=== PATIENT | female | born 1975 | race Caucasian/White ===

== ENCOUNTER → 2019-10-27 16:25 | Outpatient (CLI) | payer OTHER, SELFPAY ==
--- NOTE | 2019-10-27 | MM_ITS ---
PROCEDURE: MM DIG SCREENING MAMM BI W/CAD CLINICAL INDICATION: There is a history of breast cancer patient's mother aunt and grandmother. COMPARISON: None, this is a baseline examination TECHNIQUE: Standard CC and MLO images were obtained. R2 CAD reviewed. FINDINGS: Prominent diffuse fibroglandular densities are seen throughout both breast and the findings of bilateral and symmetrical. There is a possible asymmetric density inner quadrant left breast at the 9 o'clock position. This likely is a summation shadow but since this is the baseline study recommend patient return for spot compression views in the MLO and CC projection and this proved to be a true lesion recommend ultrasound as well.. IMPRESSION: Diffusely dense parenchymal pattern with possible asymmetric density left breast BI-RAD Category: 0 Need Additional Imaging Evaluation FOLLOW-UP: IMM Immediate Follow-up Recommended (A letter has been sent to the patient regarding results of the study.) Dictated by: Dr. Kush Ruff MD 10/31/2019 16:[address] Kush Ruff MD in [place] 10/31/2019 16:58
== END ==
PROVIDERS: PCP Family Medicine; Visit Provider Nurse Practitioner Family
DX: Z12.31 Encounter for screening mammogram for malignant neoplasm of breast (principal)
CPT/HCPCS: 77067

== ENCOUNTER → 2019-11-02 12:54 | Outpatient (CLI) | payer OTHER, SELFPAY ==
--- NOTE | 2019-11-02 13:04 | MM_ITS ---
PROCEDURE: MM DIG MAMM DX UNILAT LT CAD CLINICAL INDICATION: Abnormal mamm Abnormal mammogram, left breast nodule the COMPARISON: MM DIG SCREENING MAMM BI W/CAD from 10/27/2019 US BREAST LT COMPLETE from 11/02/2019 TECHNIQUE: Problem solving views performed along with left breast ultrasound FINDINGS: There is dense fibroglandular tissue decreasing the sensitivity of mammography. Spot views demonstrates a 5 mm nodular opacity in the deep mid aspect of the left breast as seen on the MLO view corresponding to the abnormality noted on the screening exam. This is not well demonstrated on the CC view. The area of asymmetric density noted medially on the CC view appears to compress out. Left breast ultrasound: There is a 6 mm cyst at 9 o'clock which may correspond to the mammographic abnormality. No suspicious nodules are evident. No solid lesions. IMPRESSION: Left breast nodule may correspond to a benign-appearing cyst. Recommend short-term follow-up with mammogram and ultrasound of the left breast BI-RAD Category: 3 Probably Benign Finding Short Term Follow-up FOLLOW-UP: 6M 6Month Follow-up (A letter has been sent to the patient regarding results of the study.) Dictated by: Humza Wise MD 11/04/2019 12:07 Electronically signed by Humza Wise MD in [place] 11/04/2019 12:07
== END ==
PROVIDERS: PCP Family Medicine; Visit Provider Nurse Practitioner Obstetrics & Gynecology
DX: R92.2 Inconclusive mammogram (principal)
CPT/HCPCS: 76641; 77065

== ENCOUNTER → 2020-08-20 14:46 | Outpatient (CLI) | payer OTHER, SELFPAY ==
--- NOTE | 2020-08-20 14:55 | MM_ITS ---
PROCEDURE: MM DIG MAMM DX UNILAT LT CAD Digital Breast Tomosynthesis Included CLINICAL INDICATION: ABN MAMM Density inner quadrant left breast with cystic lesion on ultrasound at this location COMPARISON: MG MM DIG SCREENING MAMM BI W/CAD from 10/27/2019 MG MM DIG MAMM DX UNILAT LT CAD from 11/02/2019 US US BREAST LT COMPLETE from 08/20/2020 TECHNIQUE: Standard CC and MLO images and 3D Tomosynthesis was obtained. R2 CAD reviewed. FINDINGS: Diffuse somewhat heterogenic fibroglandular densities are seen in the breast. The small well-defined nodular lesion is again seen at approximately 9 o'clock position. Is stable unchanged in size and overall appearance from the previous exam. Ultrasound performed the same date shows several cystic lesions within the breast 1 of which is at the 9 o'clock position measuring approximately 8 mm in size. There are no suspicious solid lesions seen on the ultrasound exam. IMPRESSION: Stable benign-appearing asymmetric lesion on six-month follow-up mammogram and cystic lesion on six-month follow-up ultrasound and recommend the patient to continue with yearly screening mammography. BI-RAD Category: 2 Benign Finding(s) FOLLOW-UP: 6M 6Month Follow-up to return to normal yearly screening schedule (A letter has been sent to the patient regarding results of the study.) Dictated by: Dr. Kush Ruff MD 08/28/2020 15:43 Dr. Kush Ruff MD in [place] 08/28/2020 15:43
--- NOTE | 2020-08-20 15:15 | US_ITS ---
PROCEDURE: US BREAST LT COMPLETE CLINICAL INDICATION: 6 MTH F/U LT BREAST NODULE COMPARISON: US US BREAST LT COMPLETE from 11/02/2019 FINDINGS: There are benign-appearing cystic lesions at the 1 and 2 o'clock positions. In addition there is another oval hypoechoic cystic lesion with internal septations 2 o'clock position mid breast measuring 0.8 by 0.9 x 0.4 cm. This likely is a complex cyst. There are small hypoechoic cystic-appearing lesions at the 4 o'clock position near the nipple. There is a defined hypoechoic cystic-appearing oval lesion 6-7 o'clock near the nipple measuring 0.8 by 0.8 x 0.4 cm. This most likely corresponds to the nodular asymmetric density on recent mammogram. There are no suspicious solid lesions seen on the ultrasound exam. IMPRESSION: Multiple cystic benign-appearing lesions the benign-appearing cystic lesion 6 7 o'clock position near the nipple most likely corresponds to the nodular density on the previous mammogram and a six-month follow-up mammogram performed this date. Recommend the patient continue with yearly screening mammography Dictated by: Dr. Kush Ruff MD 08/28/2020 15:48 Dr. Kush Ruff MD in [place] 08/28/2020 15:48
== END ==
PROVIDERS: PCP Family Medicine; Visit Provider Family Medicine
DX: R92.8 Other abnormal and inconclusive findings on diagnostic imaging of breast (principal)
CPT/HCPCS: 76641; 77061; 77065; G0279

== ENCOUNTER 2021-07-15 14:40 | Emergency (ER) | payer SELFPAY ==
[2021-07-15 15:54] VITALS: BP 105/63; PULSE 53; RESP 14; TEMP 37; O2SAT 99; BMI 20.7
--- NOTE | 2021-07-15 16:04 | HMH.EDUTC ---
[facility] [place] Disposition Clinical Impression: Poison kimberly Contact dermatitis Qualifiers: Contact dermatitis type: allergic Contact dermatitis trigger: unspecified trigger Qualified Code(s): L23.9 - Allergic contact dermatitis, unspecified cause Disposition: Home, Self-Care Condition on Discharge: Good Instructions: DI for Poison Kimberly Allergy Additional Instructions: Avoid contact with the offending substance (poison kimberly). Don't start the oral steroids until tomorrow, since you had the shot here today. Don't put the topical steroids (triamcinolone) on your face or your groin. Follow up with your regular doctor. GO TO THE ER FOR ANY WORSENING SYMPTOMS OR CONCERNS Prescriptions: diphenhydrAMINE HCL [Diphenhydramine HCl] 25 mg PO Q6HP PRN #30 cap PRN Reason: Itching Transmission Status: Received by [facility] predniSONE [Prednisone 10mg Tab Dose-Pack] 1 pack PO DIRECTED #1 pack Transmission Status: Received by [facility] Triamcinolone Acetonide 1 applicatio TP TIDP PRN 7 Days #1 tube PRN Reason: Itching Transmission Status: Received by [facility] Referrals: Larry Spicer MD [Primary Care Provider] - Time of Disposition: 16:10 Medical Decision Making - Medical Records Medical records reviewed: No: I reviewed the patient's medical records. - Alex Inquiry Pt receiving controlled substance: No Vital Signs: 07/15/21 15:54 07/15/21 16:31 Temperature 98.6 F 98.4 F Temperature Source Oral Pulse Rate 59 L Pulse Rate [Left] 53 L Respiratory Rate 14 16 Blood Pressure 109/62 L Blood Pressure [Right Arm] 105/63 L Blood Pressure Mean [Right Arm] 77 02 Sat by Pulse Oximetry 99 Orders (Tests/Meds): ED MEDICATIONS Discontinued Medications Generic Name Dose Route Start Last Admin Trade Name Freq PRN Reason Stop Dose Admin Methylprednisolone Sodium Succinate 125 mg 07/15/21 16:06 07/15/21 16:15 Methylprednisolone Sod Succ 125mg Vial IM 07/15/21 16:07 125 mg ONCE ONE Administration [facility] [place] HPI - General Stated complaint: poison kimberly Time Seen by Provider: 07/15/21 16:04 Mode of Arrival: Ambulatory Source of Information: Patient, Parent(s) Limitations: No Limitations Description of Symptoms (Recalled from Triage Doc. by RN): pt presents with poison kimberly on both hands, L elbow, L knee, and face. this has been ongoing since 07/10 HEENT Symptoms (Recalled from RN notes): No Resp Symptoms (Recalled from RN notes): No Skin Symptoms (Recalled from RN notes): Yes (poison kimberly rash) MS Symptoms (Recalled from RN notes): No Functional Status (Recalled from RN notes): na - History of Present Illness Provider Complaint: She has poison kimberly for the past 4 days. She has a history of being very sensitive to poison kimberly. She had to weed eat and work in some weeks last weekend, then her symptoms began. - Related Data Previous Rx's Medication Instructions Recorded Triamcinolone Acetonide 1 applicatio TP TIDP PRN 7 Days #1 07/15/21 tube diphenhydrAMINE HCL 25 mg PO Q6HP PRN #30 cap 07/15/21 [Diphenhydramine HCl] predniSONE [Prednisone 10mg Tab 1 pack PO DIRECTED #1 pack 07/15/21 Dose-Pack] Allergies Allergy/AdvReac Type Severity Reaction Status Date / Time INGREDIENT: NO KNOWN - NO Allergy Unknown Uncoded 11/09/17 14:59 KNOWN DRUG ALLERGY - Worker's Comp Is this a Worker's Comp case?: No [facility] History - Hepatitis A Screen Drug use history?: No High risk sexual behaviors?: No History of sexually transmitted infection?: No Currently employed?: No Childcare worker?: No Do you have indoor plumbing?: Yes Do you have electricity?: Yes Attestation statement:: This patient has been screened for Hepatitis A risk factors. I have reviewed the patient's past medical history: Yes ROS Obtained: Yes All systems reviewed & no additional complaints - Constitutional Constitutional: Reports system reviewed
[2021-07-15 16:31] VITALS: BP 109/62; PULSE 59; RESP 16; TEMP 36.9
== END 2021-07-15 16:36 | disposition home or self-care (01) ==
PROVIDERS: Emergency Provider Nurse Practitioner Family; PCP Family Medicine
DX: L23.7 Allergic contact dermatitis due to plants, except food (principal)
CPT/HCPCS: 99202; G0463

== ENCOUNTER → 2021-12-03 16:44 | Outpatient (CLI) | payer OTHER, SELFPAY | PROVIDERS: Visit Provider Nurse Practitioner | DX: U07.1 COVID-19 (principal) | CPT/HCPCS: C9803; U0003; U0005 ==

== ENCOUNTER 2022-06-14 09:47 | Emergency (ER) | payer BC, SELFPAY ==
[2022-06-14 09:56] VITALS: BP 138/88; PULSE 66; RESP 18; O2SAT 100; BMI 20.7
[2022-06-14 10:12] LABS: Apearance,Urine Clear (Clear); Bilirubin,Urine Negative (Negative); Blood, Urine Trace (Negative); Color,Urine Dark Yellow (Yellow); Glucose,Urine (UA) Negative (Negative); Ketones,Urine Negative (Negative); Protein,Urine Negative (Negative)
[2022-06-14 10:13] LABS: UTC Leukocyte Esterase,Urine 2+ (Negative); UTC Nitrate,Urine Negative (Negative); Urobilinogen,Urine 0.2 EU/dl (0.2)
[2022-06-14 10:20] VITALS: BP 138/88; PULSE 66; RESP 18; TEMP 37; O2SAT 100; BMI 20.8
--- NOTE | 2022-06-14 10:27 | HMH.EDUTC ---
[facility] [place] Disposition Clinical Impression: UTI (urinary tract infection) Qualifiers: Urinary tract infection type: site unspecified Hematuria presence: with hematuria Qualified Code(s): N39.0 - Urinary tract infection, site not specified Disposition: Home, Self-Care Condition on Discharge: Good Instructions: Urinary Tract Infection, DI for Urinary Tract Infection (UTI), Phenazopyridine Additional Instructions: *Increase fluids. Water not Soda or Tea *Start antibiotic immediately and be sure to take as ordered for the FULL length of time although you should start to see improvement over the next 48 hours *Pyridium as needed Remember this medication will turn your urine [place]. This is normal but it will stain what ever it gets on *You should not use Pyridium for more than 48 hours. If so , follow up with your primary physician to review urine culture and ensure that antibiotic is adequate for infection *Be SURE to follow up anytime for new or worsening symptoms with your family doctor. AND in 48 hours for urine culture results with your family doctor, if you do not have a doctor then you may call back to the [facility] for urine culture results and further treatment. We do recommend that you choose and establish care with a Primary Care Physician. AND follow up with them in 10-14 days to repeat UA to ensure infection is resolved and blood no longer present *Be sure to let your PCP know that we sent urine cultures from the [facility] so they can follow up to ensure that you area the on the correct antibiotic Call your doctor office and make appointment for 48 hours (2 days from today) to follow up and get the results of your urine culture and further treatment Follow up immediately if any worsening of symptoms Prescriptions: Cefdinir [Omnicef 300mg Capsule] 300 mg PO BID 7 Days #14 cap Transmission Status: Sent to [facility] Phenazopyridine HCl [Pyridium 200mg Tablet] 200 pow PO TID #6 tab Transmission Status: Sent to [facility] Referrals: Larry Spicer MD [Primary Care Provider] - As needed Time of Disposition: 10:36 Medical Decision Making - Alex Inquiry Pt receiving controlled substance: No Alex was queried for this patient: No Vital Signs: 06/14/22 09:56 06/14/22 10:20 06/14/22 10:40 Temperature 98.6 F 98.6 F Temperature Source Oral Pulse Rate 66 Pulse Rate [Left Radial] 66 66 Respiratory Rate 18 18 18 Blood Pressure 138/88 Blood Pressure [Right Arm] 138/88 138/88 Blood Pressure Mean [Right Arm] 104 104 Blood Pressure Source [Right Arm] Automatic Cuff Blood Pressure Position [Right Arm] Sitting 02 Sat by Pulse Oximetry 100 100 Oxygen Delivery Method Room Air Room Air - Lab Data Lab results reviewed: Yes: I reviewed the patient's lab results. Lab Results 06/14/22 10:10: Urine Color Dark yellow, Urine Appearance Clear, Urine pH 7.0, Ur Specific [place] 1.010, Urine Protein Negative, Urine Glucose (UA) Negative, Urine Ketones Negative, Urine Blood Trace, Urine Nitrate Negative, Urine Bilirubin Negative, Urine Urobilinogen 0.2, Ur Leukocyte Esterase 2+ A Orders (Tests/Meds): ORDERS Category Date Time Status Urine Culture Stat Micro 06/14/22 10:10 Ordered [facility] [place] [place] HPI - General Stated complaint: possible bladder inf, frequent urination Time Seen by Provider: 06/14/22 10:27 Mode of Arrival: Ambulatory Source of Information: Patient Limitations: No Limitations Description of Symptoms (Recalled from Triage Doc. by RN): pt to ed c/o burning with urination and urinary urgency. pt denies abd pain. - History of Present Illness Provider Complaint: Patient states that she started a couple weeks ago feeling like she had a UTI so she started taking OTC AZO and drinking cranberry juice and it felt better States that now it has returned States that she has been having burning with urination and pressure and feeling like she has to go so today when she was still having issues she cam
[2022-06-14 10:40] VITALS: BP 138/88; PULSE 66; RESP 18; TEMP 37; O2SAT 100
== END 2022-06-14 10:45 | disposition home or self-care (01) ==
LOC: ER 09:56 → UTC 09:56
PROVIDERS: Emergency Provider Nurse Practitioner; PCP Family Medicine
DX: N39.0 Urinary tract infection, site not specified (principal)
CPT/HCPCS: 81003; 87086; 99212; G0463

== ENCOUNTER 2022-10-08 12:53 | Emergency (ER) | payer BC, SELFPAY ==
[2022-10-08 14:00] VITALS: BP 112/73; PULSE 70; RESP 18; TEMP 36.8; O2SAT 98; BMI 19.3
[2022-10-08 14:12] LABS: Apearance,Urine Cloudy (Clear); Bilirubin,Urine Negative (Negative); Blood, Urine Trace (Negative); Color,Urine Red (Yellow); Glucose,Urine (UA) 100 (Negative); Ketones,Urine Negative (Negative); Protein,Urine 1+ (Negative); Specific Gravity, Urine 1.015 (1.005-1.030); UTC Leukocyte Esterase,Urine Negative (Negative); UTC Nitrate,Urine Positive (Negative); Urobilinogen,Urine 1 EU/dl (0.2)
--- NOTE | 2022-10-08 14:31 | EXP.UTC ---
Discharge Plan Disposition Patient Disposition: Home, Self-Care Condition: Good Prescriptions Prescriptions: New nitrofurantoin monohyd/m-cryst [Macrobid] 100 mg capsule 100 mg PO Q12H 7 Days Qty: 14 0RF Rx Instructions: must administer with a meal/food phenazopyridine [Pyridium] 200 mg tablet 200 mg PO Q8H 2 Days Qty: 6 0RF Referrals Follow up/Referrals: Larry Spicer MD [Primary Care Provider] - See instructions Activity Restrictions/Add. Instructions Additional Instructions/Restrictions: *Increase fluids. Water not Soda or Tea *Start antibiotic immediately and be sure to take as ordered for the FULL length of time although you should start to see improvement over the next 48 hours *Pyridium as needed Remember this medication will turn your urine . This is normal but it will stain what ever it gets on *You should not use Pyridium for more than 48 hours. If so , follow up with your primary physician to review urine culture and ensure that antibiotic is adequate for infection *Be SURE to follow up anytime for new or worsening symptoms with your family doctor. AND in 48 hours for urine culture results with your family doctor, if you do not have a doctor then you may call back to the [facility] for urine culture results and further treatment. We do recommend that you choose and establish care with a Primary Care Physician. ?AND follow up with them ?in 10-14 days to repeat UA to ensure infection is resolved and blood no longer present *Be sure to let your PCP know that we sent urine cultures from the [facility] so they can follow up to ensure that you area the on the correct antibiotic Call your doctor office and make appointment for 48 hours (2 days from today) ?to follow up and get the results of your urine culture and further treatment Clinical Impressions Clinical Impression: UTI (urinary tract infection) Qualifiers: Urinary tract infection type: site unspecified Hematuria presence: with hematuria Qualified Code(s): N39.0 - Urinary tract infection, site not specified Instructions Patient Instructions: DI for Urinary Tract Infection (UTI) Discharge ED Provider: Beatriz French [facility] [place] HPI General Stated complaint: Possible UTI Mode of Arrival: Ambulatory Source of Information: Patient Limitations: No Limitations Time Seen by Provider: 10/08/22 14:31 Description of Symptoms (Recalled from Triage Doc. by RN): PATIENT C/O BURNING WITH URINATION X 2 DAYS HEENT Symptoms (Recalled from RN notes): No Resp Symptoms (Recalled from RN notes): No Skin Symptoms (Recalled from RN notes): No MS Symptoms (Recalled from RN notes): No Functional Status (Recalled from RN notes): WNL History of Present Illness Provider Complaint: Patient states that she has a history of UTI States that for the last couple of days she has been having burning with urination that hasnt got better and feels like it did when she had UTI in the past Related Data Previous Rx's Medication Instructions Recorded nitrofurantoin 100 mg PO Q12H 7 days #14 caps 10/08/22 monohydrate/macrocrystals 100 mg capsule (Macrobid) phenazopyridine 200 mg tablet 200 mg PO Q8H pain 2 days #6 tabs 10/08/22 (Pyridium) Allergies Allergy/AdvReac Type Severity Reaction Status Date / Time No Known Allergies Allergy Verified 07/16/22 15:59 Worker's Comp Is this a Worker's Comp case?: No PFSH PFSH Medical History (Updated 10/08/22 @ 14:32 by Beatriz French APRN) Kidney stone Thyroid disease Urinary tract infection Surgical History (Updated 10/08/22 @ 14:14 by Saritha Bland RN) History of dental surgery History of tubal ligation Social History (Updated 10/08/22 @ 14:14 by Saritha Bland, RN) Smoking Status: Current every day smoker alcohol intake: current substance use type: marijuana current occupational status: employed Travel in the last 8 weeks: None ROS Obtained: Yes All systems reviewed & no additional complaints excep
[2022-10-08 14:38] VITALS: BP 112/73; PULSE 70; RESP 18; TEMP 36.8; O2SAT 98
== END 2022-10-08 14:40 | disposition home or self-care (01) ==
PROVIDERS: Emergency Provider Nurse Practitioner; PCP Family Medicine
DX: N39.0 Urinary tract infection, site not specified (principal)
CPT/HCPCS: 81003; 87086; 99212; G0463

== ENCOUNTER 2025-05-03 15:22 | Outpatient (CLI) | payer BC, SELFPAY ==
--- NOTE | 2025-05-03 15:25 | US_ITS ---
PROCEDURE INFORMATION: Exam: US Left Breast, Complete Exam date and time: 05/03/2025 3:20 PM Age: 49 years old Clinical indication: Concern for palpable lump. TECHNIQUE: Imaging protocol: Complete ultrasound of all four quadrants of the left breast and the retroareolar regions, including ultrasound of the axilla when performed. COMPARISON: US BREAST LT COMPLETE 08/20/2020 3:22 PM FINDINGS: ULTRASOUND: Breast ultrasound findings: Left sonography, all 4 quadrants, retroareolar and axilla demonstrate at the palpable concern at 3 o'clock 4 cm from the nipple, an anechoic 0.4 cm cyst, though calipers were placed on a larger area, more likely deeper tissue than a mass, measuring 0.7 x 0.6 x 0.7 cm. On prior sonography 08/20/2020, cystic changes were noted at 4 o'clock. At 6 o'clock 2 cm from the nipple, anechoic avascular cyst measuring 0.6 x 0.7 x 0.3 cm. At 6 o'clock retroareolar, there is a mass with cystic components, septations, and more nodular component which shows increased Doppler flow, measuring 0.6 x 0.5 x 0.6 cm. Sonographically unremarkable axillary lymph node. IMPRESSION: See comments Recommend ultrasound guided biopsy for indeterminate complex cyst left 6 o'clock retroareolar. Regarding palpable concern on the left at 3 o'clock, correlating sonography shows more likely cystic change with related breast tissue than mass, recommend that patient be recalled for bilateral diagnostic mammogram (last available bilateral mammogram indicated as 11/04/2019). If mammogram unrevealing regarding the palpable concern, suggest 3 month follow-up left sonography unless otherwise clinically indicated. Further evaluation of a palpable abnormality should be based on clinical grounds regardless of radiographic findings or lack thereof. ASSESSMENT: BI-RADS Category 4: Suspicious.
== END 2025-05-03 23:59 | disposition home or self-care (01) ==
PROVIDERS: PCP Family Medicine; Visit Provider Family Medicine
DX: N60.02 Solitary cyst of left breast (principal)
CPT/HCPCS: 76641

== ENCOUNTER 2025-05-08 14:44 | Outpatient (CLI) | payer BC, SELFPAY ==
--- NOTE | 2025-05-08 14:47 | MM_ITS ---
PROCEDURE INFORMATION: Exam: MG Left Diagnostic Breast Tomosynthesis MG Bilateral Diagnostic Mammography Exam date and time: 05/08/2025 2:57 PM Age: 49 years old Clinical indication: Left breast palpable lump TECHNIQUE: Imaging protocol: Left Diagnostic tomosynthesis and 2D mammography including computer-aided detection (CAD) when performed. Unilateral or bilateral exam. Diagnostic mammography of the bilateral breasts including computer-aided detection (CAD) when performed. Bilateral exam. COMPARISON: 1. MG MM DIG MAMM DX UNILAT LT CAD 08/20/2020 2:54 PM 2. MG MM DIG MAMM DX UNILAT LT CAD 11/02/2019 1:11 PM FINDINGS: MAMMOGRAPHY: Breast composition: The breasts are heterogeneously dense, which may obscure small masses. Breast mammogram findings: There is no stellate mass, architectural distortion or suspicious microcalcifications in either breast to suggest malignancy. No skin thickening or axillary adenopathy. A skin marker was placed over the area of palpable concern in the left upper outer quadrant. No suspicious findings on routine or spot compression views. Sonography performed 05/03/2025 suggested short-term sonographic follow-up over the area of palpable concern in the presence of a normal mammogram. IMPRESSION: No mammographic evidence of malignancy. However, sonogram report dated 05/03/2025 recommended ultrasound-guided core biopsy of a complex cystic mass in the left 6 o'clock retro areolar region. Three-month follow-up left 3 o'clock axis ultrasound was also recommended to assess stability of a focal area of palpable concern ASSESSMENT: BI-RADS Category 4: Suspicious.
--- OUTSIDE RECORDS SUMMARY | 2025-05-08 14:47 | XMS_ITS | Clinical Summary ---
Author Organization [employer] Address [address] [place] [id number] Care Team Providers Care Business Consultant Name Role Phone Unavailable Primary Care Provider Unavailabl e Social History Tobacco Use Types Packs/Day Years Used Date Smoking Tobacco: Never Assessed Comments Unknown Sex and Gender Information Value Date Recorded Sex Assigned at Not on file Legal Sex Female 7:11 PM CDT Gender Identity Not on file Sexual Orientation Not on file Plan of Treatment Not on file
--- OUTSIDE RECORDS SUMMARY | 2025-05-08 14:47 | XMS_ITS | Referral Summary ---
Author Organization [employer] Address [address] [place] [id number] Care Team Providers Care General Internal Medicine Physician Name Role Phone Unavailable Primary Care Provider [...]
--- OUTSIDE RECORDS SUMMARY | 2025-05-08 14:47 | XMS_ITS | Encounter Summary ---
Author Organization [email or web address] Address [address] [place] [id number] Care Team Providers Care Dental Insurance Coordinator Name Role Phone Unavailable Primary Care Provider Unavailabl e Encounter Details Date Type Department Care Team (Late st Contact Info) Description 12/05/2020 Transcribed Document [facility] [place] Family Medicine [address] [place] [address] ProviderElian MD [address] [place] [address] Social History Tobacco Use Types Packs/Day Years Used Date Smoking Tobacco: Never Assessed Comments Unknown Sex and Gender Information Value Date Recorded Sex Assigned at Not on file Legal Sex Female 7:11 PM CDT Gender Identity Not on file Sexual Orientation Not on file documented as of this encounter Miscellaneous Notes * Cerner Conversion Note - Historical ProviderMD - 12/05/2020 8:51 AM [facility] Height and Weight, Routine Entered On: 12/05/2020 8:52 EST Performed On: 12/05/2020 8:51 EST by SHAUN HOLLINGSWORTH RN Height and Weight, Routine Routine Weight Source : Standing scale Routine Weight Entry Format : [place] Routine Weight, Pounds : 123 lb Routine Weight Calculation : 55.91 kg Height Source : Measured Height Entry Format : [place] Height, Feet : 5 ft Clinical Height : 152.4 cm Body Surface Area (BSA), Routine : 1.52 m2 Body Mass Index (BMI), Routine : 24.07 kg/m2 SHAUN HOLLINGSWORTH RN - 12/05/2020 8:51 EST documented in this encounter Plan of Treatment Not on file documented as of this encounter Visit Diagnoses Not on filedocumented in this encounter
--- OUTSIDE RECORDS SUMMARY | 2025-05-08 14:47 | XMS_ITS | Encounter Summary ---
Author Organization [employer] Address [address] [place] [id number] Care Team Providers Care Front End Specialist Name Role Phone Unavailable Primary Care Provider Unavailabl e Encounter Details Date Type Department Care Team (Late st Contact Info) Description 12/05/2020 Transcribed Document [facility] [place] [address] [place] [address] ProviderElian MD [address] [place] [address] Social History Tobacco Use Types [...] - Historical ProviderMD - 12/05/2020 8:51 AM [employer] Vital Measurements Entered On: 12/05/2020 8:52 EST Performed On: 12/05/2020 8:51 EST by SHAUN HOLLINGSWORTH RN Vital Measurements Temperature, Fahrenheit : 98 Deg F Clinical Temperature, C : 36.7 Deg C Peripheral Pulse Rate : 50 bpm (LOW) Systolic Blood Pressure : 109 mmHg Diastolic Blood Pressure : 62 mmHg Oxygen Saturation : 100 % SHAUN HOLLINGSWORTH RN - 12/05/2020 8:51 EST Electronically signed by Reanna Fields Conversion Pay Station Department Manager Cermike at 03/09/2023 1:32 PM CDT documented in this encounter Plan of Treatment Not on file documented as of this encounter Visit Diagnoses Not on filedocumented in this encounter
--- OUTSIDE RECORDS SUMMARY | 2025-05-08 14:47 | XMS_ITS | Encounter Summary ---
Author Organization [email or web address] Address [address] [place] [id number] Care Team Providers Care Control Area Operator Name Role Phone Unavailable Primary Care Provider Unavailabl e Encounter Details Date Type Department Care Team (Late st Contact Info) Description 12/06/2020 Transcribed Document [facility] [place] [facility] [place] [address] ProviderElian MD [address] [place] [address] Social History Tobacco Use Types Packs/Day Years Used Date Smoking Tobacco: Never Assessed Comments Unknown Sex and Gender Information Value Date Recorded Sex Assigned at Not on file Legal Sex Female 7:11 PM CDT Gender Identity Not on file Sexual Orientation Not on file documented as of this encounter Miscellaneous Notes * Cerner Conversion Note - Elian ProviderMD - 12/06/2020 5:28 PM NUMERICAL CONTROL DRILL PRESS OPERATOR DATE OF SERVICE: STRESS TEST INTERPRETATION The patient underwent the treadmill stress test and reached 10.4 METS. She reached 155 beats per minute, which is 87% of the age predicted heart rate. The baseline blood pressure was 107/57. The maximum blood pressure 146/56 mmHg. The patient returned to stage IV for a duration of 9 minutes and 13 seconds. The reason for stopping the stress test was shortness of breath and leg fatigue. Overall, there was no complications or chest pain or arrhythmia. Overall, the stress test is satisfactory. /[id number] Daniel Neville MD SE/AQ / SE / MODL /[id number] Electronically signed by Diamond, [facility] Conversion Float Phlebotomist Cerner at 03/09/2023 1:24 PM CDT documented in this encounter Plan of Treatment Not on file documented as of this encounter Visit Diagnoses Not on filedocumented in this encounter
== END 2025-05-08 23:59 | disposition home or self-care (01) ==
LOC: RAD 14:45
PROVIDERS: PCP Family Medicine; Visit Provider Family Medicine
DX: Z12.31 Encounter for screening mammogram for malignant neoplasm of breast (principal); N63.25 Unspecified lump in the left breast, overlapping quadrants; R92.333 Mammographic heterogeneous density, bilateral breasts
CPT/HCPCS: 77062; 77066; G0279

== ENCOUNTER 2025-05-29 09:26 | Outpatient (CLI) | payer BC, SELFPAY ==
--- OUTSIDE RECORDS SUMMARY | 2025-05-29 09:29 | XMS_ITS | Encounter Summary ---
Author Organization [employer] ([place], [place], [place], [place]) Address [address] [place] [address] Care Team Providers Care Track Vehicle Repairer Name Role Phone Unavailable Primary Care Provider Unavailabl e Encounter Details Date Type Department Care Team (Late st Contact Info) Description 12/06/2020 Transcribed Document [facility] [place] Family Medicine [address] [place] [address] ProviderElian MD [address] [place] [address] Social History Tobacco Use Types [...] - Elian ProviderMD - 12/06/2020 5:28 PM GLOBAL ACCOUNT MANAGER DATE OF SERVICE: STRESS TEST INTERPRETATION The [...] arrhythmia. Overall, the stress test is satisfactory. /[id number] Daniel Neville MD SE/AQ / SE / MODL /[id number] documented in this encounter Plan of Treatment Not on file documented as of this encounter Visit Diagnoses Not on filedocumented in this encounter
--- OUTSIDE RECORDS SUMMARY | 2025-05-29 09:29 | XMS_ITS | Encounter Summary ---
Author Organization [employer] ([place], [place], [place], [place]) Address [address] [place] [address] Care Team Providers Care Price Economist Name Role Phone Unavailable Primary Care Provider Unavailabl e Encounter Details Date Type Department Care Team (Late st Contact Info) Description 12/05/[address] [facility] [place] Family Medicine [address] [place] [address] ProviderElian MD [address] [place] [address] Social History Tobacco Use Types [...] - Historical ProviderMD - 12/05/2020 8:51 AM MEDIA ANALYST Height and Weight, Routine Entered On: 12/05/2020 8:52 EST Performed On: 12/05/2020 8:51 EST by SHAUN HOLLINGSWORTH RN Height and Weight, Routine Routine Weight Source : Standing scale Routine Weight Entry Format : Pickett Routine Weight, Pounds : 123 lb Routine Weight Calculation : 55.91 kg Height Source : Measured Height Entry Format : Pickett Height, Feet : 5 ft Clinical Height : 152.4 cm Body Surface Area (BSA), Routine : 1.52 m2 Body Mass Index (BMI), Routine : 24.07 kg/m2 SHAUN HOLLIGNSWORTH RN - 12/05/2020 8:51 EST Electronically signed by Diamond [facility] Conversion Vocational Trainer Cerner at 03/09/2023 1:29 PM CDT documented in this encounter Plan of Treatment Not on file documented as of this encounter Visit Diagnoses Not on filedocumented in this encounter
--- OUTSIDE RECORDS SUMMARY | 2025-05-29 09:29 | XMS_ITS | Clinical Summary ---
Author Organization [employer] ([place], [place], [place], [place]) Address [address] [place] [address] Care Team Providers Care Tool/Die Maker Name Role Phone Unavailable Primary Care Provider [...]
--- OUTSIDE RECORDS SUMMARY | 2025-05-29 09:29 | XMS_ITS | Encounter Summary ---
Author Organization [employer] ([place], [place], [place], [place]) Address [address] [place] [address] Care Team Providers Care Comparison Shopper Name Role Phone Unavailable Primary Care Provider Unavailabl e Encounter Details Date Type Department Care Team (Late st Contact Info) Description 12/05/2020 Transcribed Document [facility] [place] Family Medicine [address] [place] [address] ProviderElian MD [address] [place] [address] Social History Tobacco Use Types [...] - Historical ProviderMD - 12/05/2020 8:51 AM OIL WELL SERVICES SUPERVISOR Vital Measurements Entered On: 12/05/2020 8:52 EST [...]
--- OUTSIDE RECORDS SUMMARY | 2025-05-29 09:29 | XMS_ITS | Referral Summary ---
Author Organization [employer] ([place], [place], [place], [place]) Address [address] [place] [address] Care Team Providers Care Bath Mix Operator Name Role Phone Unavailable Primary Care [...]
--- NOTE | 2025-05-29 09:39 | MM_ITS ---
FINAL REPORT CLINICAL HISTORY: post bx FINDINGS: MAMMOGRAM LEFT TECHNIQUE: Standard digital 2-D views COMPARISON: 05/08/2025 DENSITY: There are scattered areas of fibroglandular density FINDINGS: Post biopsy marker clip is noted to be in satisfactory position. Postbiopsy changes are noted. IMPRESSION: Biopsy marker clip in good position ASSESSMENT: A post-procedure mammogram is used to confirm the position and deployment of a breast tissue marker after a biopsy RECOMMENDATION: Pending histopathology evaluation Authenticated and ERN
--- NOTE | 2025-05-29 10:05 | US_ITS ---
FINAL REPORT CLINICAL HISTORY: LEFT RETROAREOLAR CYSTIC MASS -- LT BREAST BX -- DR NOÉ GARCIA -- MAMMOTOME FINDINGS: ULTRASOUND-GUIDED LEFT BREAST CORE BIOPSY TECHNIQUE: Limited images were obtained to localize region of interest. The left was prepped in a routine sterile fashion and locally anesthetized with 1% lidocaine. Standard written informed consent was obtained. A septated complex cystic lesion was noted measuring nearly 6 mm at 6:00. The lesion was noted to be smaller during and after the application of local anesthetic as well as advancement of the biopsy needle. This reflected cystic nature of the lesion An 11-gauge vacuum assisted hand-held device was utilized. The needle was positioned posterior to the lesion. Multiple vacuum assisted core samples were obtained. The lesion was noted to be significantly smaller following biopsy. A biopsy marker clip was deployed in satisfactory position. Postbiopsy mammogram showed postbiopsy changes with clip in satisfactory position. Procedure was well tolerated . CONCLUSION: 1. Technically successful ultrasound guided core vacuum assisted biopsy of left breast lesion as above. 2. Biopsy marker clip deployed Authenticated and ERN
== END 2025-05-29 23:59 | disposition home or self-care (01) ==
LOC: RAD 09:26
PROVIDERS: PCP Family Medicine; Visit Provider Family Medicine
DX: N60.22 Fibroadenosis of left breast (principal); N60.82 Other benign mammary dysplasias of left breast
CPT/HCPCS: 19083; 77065; C2618